=== PATIENT | female | born 1980 | race Caucasian/White ===

== ENCOUNTER 2019-05-17 10:14 | Emergency (ER) | payer BC ==
[2019-05-17 10:36] VITALS: BP 134/94
[2019-05-17] MEDS ORDERED: Ibuprofen TAB* 600 MG PO ONE (11:21)
--- NOTE | 2019-05-17 11:30 | UC ---
Cardiac HPI - HPI Summary HPI Summary: 2-year-old woman comes in with chief complaint of chest pain. On May 11, 2019 and she got up in the middle the night and accidentally walked into the corner of a wooden table with her sternum. She had pain right away. Pain is continued since that time got worse overnight. She has splinting pain. Denies shortness of breath at rest. She is taking shallower breaths due to the pain. No fevers or chills no cough or chest congestion. Pain is worse with palpation. She's taken ibuprofen but doesn't feel like it really helps. Denies any other injury. - History of Current Complaint Chief Complaint: UCTrauma Stated Complaint: RIB INJURY Time Seen by Provider: 05/17/19 11:16 Hx Last Menstrual Period: 2 WEEKS AGO Pain Intensity: 8 - Allergy/Home Medications Allergies/Adverse Reactions: Allergies Allergy/AdvReac Type Severity Reaction Status Date / Time latex Allergy Rash Verified 05/17/19 10:25 Home Medications: Home Medications ALPRAZolam TAB* [Xanax TAB*] 0.5 mg PO BEDTIME PRN 05/17/19 [History Confirmed 05/17/19] traZODone TAB* [Desyrel TAB*] 100 mg PO BEDTIME 05/17/19 [History Confirmed ] PMH/Surg Hx/FS Hx/Imm Hx Previously Healthy: Yes - Surgical History Surgical History: Yes Surgery Procedure, Year, and Place: RT SHOULDER ARTHROSCOPIC. UTERINE POLYPECTOMY - Family History Known Family History: Positive: Non-Contributory - Social History Alcohol Use: None Substance Use Type: None Smoking Status (MU): Former Smoker Review of Systems All Other Systems Reviewed And Are Negative: Yes Constitutional: Positive: Negative Skin: Positive: Other - REPORTS ANTERIOR CHEST BRUISING Eyes: Positive: Negative ENT: Positive: Negative Respiratory: Positive: Other - SEE HPI Cardiovascular: Positive: Chest Pain Gastrointestinal: Positive: Negative Motor: Positive: Negative Neurovascular: Positive: Negative Musculoskeletal: Positive: Negative Neurological: Positive: Negative Psychological: Positive: Negative Is Patient Immunocompromised?: No Physical Exam Triage Information Reviewed: Yes Appearance: Well-Appearing, Well-Nourished, Pain Distress - MILD Vital Signs: Initial Vital Signs Temp 98.6 F 05/17/19 10:29 Pulse 87 05/17/19 10:29 Resp 18 05/17/19 10:29 BP 134/94 05/17/19 10:29 Pulse Ox 100 05/17/19 10:29 Vital Signs Reviewed: Yes Eye Exam: Normal Eyes: Positive: Conjunctiva Clear Neck: Positive: Supple, Nontender Respiratory: Positive: Lungs clear, Normal breath sounds, No respiratory distress, Other: - TAKING SHALLOW BREATHS Cardiovascular: Positive: RRR Abdomen Description: Positive: Nontender, Soft Musculoskeletal Exam: Normal Musculoskeletal: Positive: Strength Intact, ROM Intact Neurological Exam: Normal Neurological: Positive: Alert, Muscle Tone Normal Psychological: Positive: Age Appropriate Behavior - Assessment/Plan Course Of Treatment: Patient Name: ERYN REED Medical Record#: [id number] Ordering Physician: Can Schultz MD Acct.#: [id number] : 1980 Age: 38 Sex: F Location: [facility] Exam Date: 05/17/19 112 ADM Status: REG ER Order Information: STERNUM 2 VWS Accession Number: [id number] CPT: 08045 Indication: Anterior splinting chest pain following injury May 11, 2019. Comparison: May 13, 2012 Technique: Dual energy PA chest and 4 view bilateral rib series. Oblique AP and lateral radiographs of the sternum. REPORT AND IMPRESSION: #. Negative for rib or sternal fracture. #. No focal pulmonary lesion, compelling alveolar consolidation, pleural effusion, pneumothorax. #. The heart, pulmonary vasculature, and mediastinal contours are unremarkable. #. Unremarkable soft tissue contours. <Electronically signed by Danilo Quintanilla MD in OV> 05/17/19 1153 Patient Name: ERYN REED Medical Record#: [id number] Ordering Physician: Can Schultz MD Acct.#: [id number] : 1980 Age: 38 Sex: F Location: [facility] Exam Date: 05/17/19 1122 ADM Status: REG ER Order Information: RIBS BI W/PA CHEST MIN 4 VWS Accession Number: [id number] CPT: 43591 Indication: Anterior splinting chest pain following injury May 11, 2019. Comparison: May 13, 2012 Technique: Dual energy PA chest and 4 view bilateral rib series. Oblique AP and lateral radiographs of the sternum. REPORT AND IMPRESSION: #. Negative for rib or sternal fracture. #. No focal pulmonary lesion, compelling alveolar consolidation, pleural effusion, pneumothorax. #. The heart, pulmonary vasculature, and mediastinal contours are unremarkable. #. Unremarkable soft tissue contours. <Electronically signed by Danilo Quintanilla MD in OV> 05/17/19 1153 I discussed the x-rays with the patient. Overall the plan is ibuprofen and 100 mg 3 times a day as needed and also hydrocodone if needed. Patient's at home with an incentive spirometer. Follow-up with primary care doctor return here or go to the emergency department if worse. - Clinical Impression Provider Diagnosis: Chest wall contusion Discharge - Sign-Out/Discharge Documenting (check all that apply): Patient Departure All imaging exams completed and their final reports reviewed: Yes - Discharge Plan Condition: Stable Disposition: HOME Prescriptions: HYDROcodone/ACETAMIN 5-325 MG* [[place] 5-325 TAB*] 1 tab PO Q4H PRN #20 tab MDD 6 PRN Reason: Pain Ibuprofen TAB* [Motrin TAB* 800 MG] 800 mg PO TID #30 tab Patient Education Materials: Chest Wall Pain (ED) Referrals: Jaqueline Calderón [Primary Care Provider] - [facility] [place] [facility] [Outside] Additional Instructions: FOLLOW UP WITH YOUR DOCTOR IF NOT COMPLETELY IMPROVED. GET RECHECKED SOONER IF YOUR CONDITION WORSENS; PAIN, SHORTNESS OF BREATH, RESPIRATORY INFECTION, YOU FEEL ILL OR ANY QUESTIONS OR CONCERNS. USE THE INCENTIVE SPIROMETER EVERY 4 HOURS OR MORE FREQUENTLY TO HELP AVOID A RESPIRATORY INFECTION. - Billing Disposition and Condition Condition: STABLE Disposition: Home
== END 2019-05-17 12:40 | disposition home or self-care (01) ==
LOC: UCEAST 10:14
DX: S20.219A Contusion of unspecified front wall of thorax, initial encounter (principal); W22.03XA Walked into furniture, initial encounter; Y92.019 Unspecified place in single-family (private) house as the place of occurrence of the external cause; Z91.040 Latex allergy status; Z87.891 Personal history of nicotine dependence
CPT/HCPCS: 71111; 71120; 99212; A9270-GY; G0463

== ENCOUNTER 2019-05-22 06:45 | Emergency (ER) | payer BC ==
[2019-05-22] MEDS ORDERED: oxyCODONE/Acetamin 5/325 MG* TAB PO ONE (07:04)
--- NOTE | 2019-05-22 07:08 | ED ---
Adult Trauma - HPI Summary HPI Summary: 38-year-old female presents with sternal pain for the past week. States a week ago that she got up in the middle of the night and she walked into the corner of wooden table. She states she's had a constant pain since. She states that if she moves a certain way or coughs the pain gets worst. She admits to some shortness of breath due to pain. pain is in sternum and radiates to right chest but has bruise on left chest where does not have pain. She has been taking norco and ibuprofen with no relief. no fever. no abdominal pain. no hemoptysis. has history of allergies so coughs occasionally. She has no history of asthma. she used to be a smoker. - History of Current Complaint Chief Complaint: EDChestWallPain Stated Complaint: CONTUSION OF THE STERM PER PT Time Seen by Provider: 05/22/19 06:56 Hx Last Menstrual Period: 2 WEEKS AGO Pain Intensity: 8 - Allergy/Home Medications Allergies/Adverse Reactions: Allergies Allergy/AdvReac Type Severity Reaction Status Date / Time latex Allergy Rash Verified 05/22/19 06:53 PMH/Surg Hx/FS Hx/Imm Hx Endocrine/Hematology History: Denies: Hx Diabetes, Hx Thyroid Disease Cardiovascular History: Denies: Hx Hypertension, Hx Pacemaker/ICD Respiratory History: Denies: Hx Asthma, Hx Chronic Obstructive Pulmonary Disease (COPD) GI History: Denies: Hx Ulcer Musculoskeletal History: Denies: Hx Scoliosis Sensory History: Denies: Hx Hearing Aid Neurological History: Reports: Other Neuro Impairments/Disorders - HX OF EPILEPSY Denies: Hx Headaches Psychiatric History: Reports: Hx Panic Disorder - Surgical History Surgery Procedure, Year, and Place: RT SHOULDER ARTHROSCOPIC. UTERINE POLYPECTOMY - Immunization History Date of Tetanus Vaccine: up to date per pt. Infectious Disease History: No Infectious Disease History: Denies: Hx Hepatitis, Hx Human Immunodeficiency Virus (HIV), Traveled Outside the [place] in Last 30 Days - Family History Known Family History: Positive: Non-Contributory - Social History Alcohol Use: None Substance Use Type: Reports: None Smoking Status (MU): Former Smoker Review of Systems Negative: Fever Positive: Chest Pain Positive: Shortness Of Breath. Negative: Cough All Other Systems Reviewed And Are Negative: Yes Physical Exam Triage Information Reviewed: Yes Vital Signs On Initial Exam: Initial Vitals Temp Pulse Resp BP Pulse Ox 98.6 F 94 16 135/93 97 05/22/19 06:48 05/22/19 06:48 05/22/19 06:48 05/22/19 06:48 05/22/19 06:48 Vital Signs Reviewed: Yes Appearance: Positive: Well-Appearing Skin: Positive: Warm, Dry Head/Face: Positive: Normal Head/Face Inspection Eyes: Positive: Normal, Conjunctiva Clear ENT: Positive: Pharynx normal Respiratory/Lung Sounds: Positive: Clear to Auscultation, Breath Sounds Present , Other - tenderness sternum Cardiovascular: Positive: Normal, RRR Abdomen Description: Positive: Nontender, Soft Bowel Sounds: Positive: Present Musculoskeletal: Positive: Normal Neurological: Positive: Normal Psychiatric: Positive: Normal Diagnostics - Vital Signs Vital Signs Temp Pulse Resp BP Pulse Ox 05/22/19 06:48 98.6 F 94 16 135/93 97 - Laboratory Lab Statement: Any lab studies that have been ordered have been reviewed, and results considered in the medical decision making process. - CT chest CT Interpretation Completed By: Radiologist Summary of CT Findings: IMPRESSION: 1. No sternal fracture or substernal hematoma. 2. There are approximately 5 solid circumscribed pulmonary nodules in the right middle. and right lower lobes. The largest measure up to 5 mm. Recommend follow-up imaging in one. year. Adult Trauma Course/Dx - Course Course Of Treatment: 38-year-old female presents with contusion to chest days for the past week. States a week ago that she got up in the middle of the night and she walked into the corner of wooden table. She states she's had a constant pain since. She states that if she moves a certain way or coughs the pain gets worst. She admits to some shortness of breath due to pain. pain is in sternum and radiates to right chest but has bruise on left chest where does not have pain. She has been taking norco and ibuprofen with no relief. no fever. no abdominal pain. no hemoptysis. on exam tenderness sternum. lungs CTA. chest CT shows no sternal fracture or hematoma. discussed importance of taking deep breaths. told follow up with primary about nodule and for continued care. patient understand and agrees with plan. - Diagnoses Differential Diagnosis/HQI/PQRI: Positive: Contusion(s), Fracture, Other - lung contusion Provider Diagnoses: Sternal contusion Discharge - Sign-Out/Discharge Documenting (check all that apply): Patient Departure Patient Received Moderate/Deep Sedation with Procedure: No - Discharge Plan Condition: Good Disposition: HOME Prescriptions: Ibuprofen TAB* [Motrin TAB* 600 MG] 600 mg PO Q6H PRN #30 tab PRN Reason: Pain oxyCODONE/Acetamin 5/325 MG* [Percocet 5/325 TAB*] 1 tab PO Q6H PRN #12 tab MDD 4 PRN Reason: Pain Patient Education Materials: Rib Contusion (ED) Referrals: Jaqueline Calderón [Physician Risk And Insurance Manager] - Additional Instructions: apply ice take ibuprofen or tyenlol every 6 hours, use percocet for break through pain every 6 hours take deep breaths throughout the day follow up with primary Return to ED if develop any new or worsening symptoms - Billing Disposition and Condition Condition: GOOD Disposition: Home
[2019-05-22 08:19] VITALS: BP 131/98
== END 2019-05-22 08:18 | disposition home or self-care (01) ==
LOC: ED 06:45
DX: S20.219A Contusion of unspecified front wall of thorax, initial encounter (principal); W22.03XA Walked into furniture, initial encounter; Y92.009 Unspecified place in unspecified non-institutional (private) residence as the place of occurrence of the external cause; Z91.040 Latex allergy status; Z87.891 Personal history of nicotine dependence; R91.8 Other nonspecific abnormal finding of lung field
CPT/HCPCS: 71250; 99282

== ENCOUNTER 2020-02-04 11:36 | Emergency (ER) | payer BC ==
--- NOTE | 2020-02-04 11:39 | UC ---
Lower Extremity/Ankle HPI - HPI Summary HPI Summary: 39 yo female presents with LEFT foot injury. She tells me that on 01/30 she got up in the middle of the night to use the restroom and tripped and her left foot went underneath her. Since that time has had pain, swelling, and bruising to her left foot. Severe pain with weight bearing. She has been trying not to put weight on it and elevate it, which helps. Denies numbness or tingling. - History of Current Complaint Stated Complaint: FOOT INJURY Time Seen by Provider: 02/04/20 11:39 Hx Obtained From: Patient Hx Last Menstrual Period: 2 WEEKS AGO Onset/Duration: Sudden Onset Severity Initially: Moderate Severity Currently: Moderate Pain Intensity: 7 Pain Scale Used: 0-10 Numeric - Allergies/Home Medications Allergies/Adverse Reactions: Allergies Allergy/AdvReac Type Severity Reaction Status Date / Time lamotrigine Allergy Rash Verified 02/04/20 11:58 latex Allergy Rash Verified 02/04/20 11:58 Home Medications: Home Medications Baclofen TAB* [Lioresal TAB*] 10 mg PO TID 10/26/13 [History Confirmed 02/04/20 ] Zonisamide (NF) [Zonegran (NF)] 150 mg PO DAILY 10/26/13 [History Confirmed 11/24] ALPRAZolam TAB* [Xanax TAB*] 0.5 mg PO BEDTIME PRN 05/17/19 [History Confirmed 02/04/20] Ibuprofen TAB* [Motrin TAB* 800 MG] 800 mg PO TID #30 tab 05/17/19 [Rx Confirmed 02/04/20] Ibuprofen TAB* [Motrin TAB* 600 MG] 600 mg PO Q6H PRN #30 tab 05/22/19 [Rx Confirmed 02/04/20] Oxycodone HCl/Acetaminophen [Percocet] 1 tab PO BID PRN #8 tab MDD 2 02/04/20 [ Rx] PMH/Surg Hx/FS Hx/Imm Hx Psychological History: Anxiety - Surgical History Surgical History: Yes Surgery Procedure, Year, and Place: RT SHOULDER ARTHROSCOPIC. UTERINE POLYPECTOMY - Family History Known Family History: Positive: Other - Anxiety - Social History Occupation: Employed Full-time Lives: With Family Alcohol Use: None Substance Use Type: None Smoking Status (MU): Former Smoker Review of Systems All Other Systems Reviewed And Are Negative: No Constitutional: Positive: Negative Skin: Positive: Bruising - foot Respiratory: Positive: Negative Cardiovascular: Positive: Negative Neurovascular: Positive: Negative Musculoskeletal: Positive: Other: - Left foot pain Neurological/Mental Status: Positive: Negative Psychological: Positive: Negative Physical Exam - Summary Physical Exam Summary: GENERAL: NAD. WDWN. No pain distress. SKIN: No rashes, sores, lesions, or open wounds. CHEST: No accessory muscle use. Breathing comfortably and in no distress. CV: Pulses intact PT and DP. Cap refill <2seconds MSK: LEFT FOOT: Moderate ttp about 2nd-4th MT with mild edema and ecchymosis. Moves all toes. Mild 5th base MT pain. LEFT ANKLE: FROM. NTTP. Negative talar tilt. No increased laxity. Negative [place] test. NEURO: Alert. Sensations intact and symmetric B/L LEs PSYCH: Age appropriate behavior. Triage Information Reviewed: Yes Vital Signs: Vital Signs: Temp Pulse Resp BP Pulse Ox 99.4 F 85 16 122/77 100 02/04/20 11:51 02/04/20 11:51 02/04/20 11:51 02/04/20 11:51 02/04/20 11:51 Vital Signs Reviewed: Yes Diagnostics - Radiology Foot XR Radiology Interpretation Completed By: Radiologist Summary of Radiographic Findings: IMPRESSION: Fractures of the proximal diaphysis of the third and fourth metatarsals as well as the distal diaphysis of the fifth metatarsals. CT foot Radiology Interpretation Completed By: Radiologist Summary of Radiographic Findings: IMPRESSION: Comminuted fracture proximal end of the third metatarsal with intra-articular extension. Oblique fracture proximal fourth metatarsal with lateral displacement of the distal fracture fragment approximately 1 shafts width. Fracture of the distal diaphysis of the fifth metacarpal with medial displacement of the distal fracture fragment. Lower Extremity Course/Dx - Course Course Of Treatment: XR as above. Discussed case with Orthopedics Dr. Sheldon and she recommends CT of foot, CAM boot, crutches, non-weight bearing and f/u with Dr. Parsons/Thomas tomorrow or sunday for recheck. Discussed with pt and she is agreeable with the above. iSTOP:Reference #: [id number] Will rx for percocet for severe pain - mostly to use at bedtime. She was placed in a CAM boot and crutch teaching performed. Advised to be non- weight bearing. Ortho will call her this afternoon with an appointment time. - Differential Dx/Diagnosis Provider Diagnosis: Displaced fracture of fifth metatarsal bone, Fracture of fourth metatarsal bone , Fracture of third metatarsal bone Discharge ED - Sign-Out/Discharge Documenting (check all that apply): Patient Departure All imaging exams completed and their final reports reviewed: Yes - Discharge Plan Condition: Stable Disposition: HOME Prescriptions: Oxycodone HCl/Acetaminophen [Percocet] 1 tab PO BID PRN #8 tab MDD 2 PRN Reason: Pain - Severe Patient Education Materials: Foot Fracture in Adults (ED) Forms: *Work Release Referrals: Marcella Patterson MD [Primary Care Provider] - Additional Instructions: 1) Wear the CAM boot as much as possible and use the crutches to be non-weight bearing 2) Please follow up with Orthopedics tomorrow or sunday (they will call you later this afternoon with an appointment time) 3) Rest, ice, and elevate your foot to reduce pain and swelling Opioid-containing medications can cause drowsiness and sedation. You should not drive, operate machinery, or similar activities while taking this medication. Opioids can also cause a positive drug screen and can be habit-forming. You should follow the instructions exactly and not take any extra medication. Opioid medications should be stored in a secure manner to avoid diversion or theft. You should not drink alcohol while taking these medications - Billing Disposition and Condition Condition: STABLE Disposition: Home - Attestation Statements Provider Attestation: I was available for consult. This patient was seen by the MARY. The patient was not presented to, seen by, or examined by me. -Luis M
[2020-02-04 11:56] VITALS: BP 122/77
== END 2020-02-04 13:21 | disposition home or self-care (01) ==
LOC: UCEAST 11:36
DX: S92.352A Displaced fracture of fifth metatarsal bone, left foot, initial encounter for closed fracture (principal); S92.342A Displaced fracture of fourth metatarsal bone, left foot, initial encounter for closed fracture; S92.332A Displaced fracture of third metatarsal bone, left foot, initial encounter for closed fracture; W01.0XXA Fall on same level from slipping, tripping and stumbling without subsequent striking against object, initial encounter; Y93.01 Activity, walking, marching and hiking; Y92.009 Unspecified place in unspecified non-institutional (private) residence as the place of occurrence of the external cause; F41.9 Anxiety disorder, unspecified; Z88.8 Allergy status to other drugs, medicaments and biological substances; Z91.040 Latex allergy status
CPT/HCPCS: 99212; G0463

== ENCOUNTER 2024-08-06 14:58 | Inpatient (IN) ==
[2024-08-06 15:51] LABS: ABS Basophils 0.1 10^3/uL (0.0-0.1); ABS Eosinophils 0.1 10^3/uL (0.0-0.5); ABS Lymphocytes 1.9 10^3/uL (1.0-4.8); ABS Monocytes 0.8 10^3/uL (0.0-0.9); ABS Neutrophils 6.5 10^3/uL (1.5-7.6); ABS Nucleated RBC 0.01 10^3/ul; Hematocrit 41.6 % (35-45); Hemoglobin 13.6 g/dL (11.5-14.3); Lymphocyte % 20.5 %; Mean Corpuscular Hemoglobin 32.2 pg (27-33); Mean Corpuscular Hgb Conc 32.7 g/dL (31-36); Mean Corpuscular Volume 98.3 fL (80-97); Mean Platelet Volume 7.5 fL (7.5-11.2); Nucleated Red Blood Cells % 0.1 %/100WBC (0.0-0.8); Platelet Count 382 10^3/uL (150-450); Red Blood Count 4.23 10^6/uL (3.63-4.92); Red Cell Distribution Width 14.4 % (12-17); White Blood Count 9.5 10^3/uL (3.8-11.8)
[2024-08-06 15:56] LABS: Urine Appearance Clear; Urine Bilirubin Negative (Negative); Urine Blood Negative (Negative); Urine Color Light-Yellow; Urine Glucose Negative (Negative); Urine Ketones Negative (Negative); Urine Nitrite Negative (Negative); Urine Protein Negative (Negative); Urine Specific Gravity 1.003 (1.002-1.030); Urine Urobilinogen Negative (Negative)
[2024-08-06 16:23] LABS: HCG Pregnancy < 0.60 mIU/mL
[2024-08-06 16:31] LABS: TSH Ultra Thyroid Stim Horm 3.05 mcIU/mL (0.34-5.60)
[2024-08-06 17:04] LABS: ALT 25 U/L (7-52); AST 20 U/L (13-39); Acetaminophen < 15 mcg/mL; Albumin 3.9 g/dL (3.2-5.2); Albumin/Globulin Ratio 1.6 (1-3); Alcohol, S 237 mg/dL (<13); Alkaline Phosphatase 91 U/L (35-149); Anion Gap 9 mmol/L (2-16); Blood Urea Nitrogen 8 mg/dL (6-24); CO2 Carbon Dioxide 25 mmol/L (22-32); Calcium 8.2 mg/dL (8.6-10.3); Chloride 96 mmol/L (101-111); Creatinine, Serum 0.58 mg/dL (0.51-0.95); Globulin 2.5 g/dL (2-4); Glucose 79 mg/dL (70-100); Potassium 3.6 mmol/L (3.5-5.0); Salicylate < 2.50 mg/dL (<30); Sodium 130 mmol/L (135-145); Total Bilirubin 0.3 mg/dL (0.2-1.0); Total Protein 6.4 g/dL (6.4-8.9)
[2024-08-06 17:48] LABS: Urine Benzodiazepine Screen Presumptive Positive (None Detect); Urine Cannabinoids Screen Presumptive Positive (None Detect); Urine Opiates Screen None Detected (None Detect)
[2024-08-06] MEDS: Nicotine GUM 4MG FRUIT FLAVOR PO PRN (20:31)
[2024-08-06] MEDS: Nicotine PATCH 14 MG/24 HR PATCH TRANSDERM SCH (20:48)
[2024-08-06] MEDS ORDERED: ZONISAMIDE 50 MG PO ONE (21:51)
[2024-08-06] MEDS: ZONISAMIDE 50 MG PO ONE (22:14)
[2024-08-07] MEDS ORDERED: Al Hydrox/Mg Hydrox/Simet LIQ 30 ML UDC PO PRN (09:01)
[2024-08-07] MEDS: Nicotine Lozenge mini 4 MG LOZNG.MINI MT PRN (11:35)
[2024-08-07 16:25] LABS: ABS Lymphocytes 0.8 10^3/uL (1.0-4.8); ABS Monocytes 0.6 10^3/uL (0.0-0.9); ABS Neutrophils 10.6 10^3/uL (1.5-7.6); ABS Nucleated RBC 0.01 10^3/ul; Eosinophil % 0.1 %; Hematocrit 40.1 % (35-45); Hemoglobin 13.7 g/dL (11.5-14.3); Lymphocyte % 6.8 %; Mean Corpuscular Hemoglobin 33.2 pg (27-33); Mean Corpuscular Hgb Conc 34.1 g/dL (31-36); Mean Corpuscular Volume 97.3 fL (80-97); Mean Platelet Volume 7.3 fL (7.5-11.2); Nucleated Red Blood Cells % 0.1 %/100WBC (0.0-0.8); Platelet Count 371 10^3/uL (150-450); Red Blood Count 4.13 10^6/uL (3.63-4.92); Red Cell Distribution Width 14.3 % (12-17)
[2024-08-07 18:07] LABS: Albumin/Globulin Ratio 1.8 (1-3); Calcium 8.8 mg/dL (8.6-10.3); Creatinine, Serum 0.67 mg/dL (0.51-0.95); Globulin 2.2 g/dL (2-4); Potassium 4.1 mmol/L (3.5-5.0); Total Bilirubin 0.4 mg/dL (0.2-1.0); Total Protein 6.2 g/dL (6.4-8.9); eGFR CKD-EPI 109.1 (>60)
[2024-08-07 22:21] VITALS: BP 110/67
[2024-08-08 08:43] LABS: HDL Cholesterol 77.7 mg/dL
== END 2024-08-08 15:30 | disposition home or self-care (01) | DRG 775 ==
LOC: ED 14:58 → EDHOLD 08-07 09:08 → BSU 08-07 09:52
PROVIDERS: ADMIT Psychiatry & Neurology Psychiatry; ATTEND Psychiatry & Neurology Psychiatry

== ENCOUNTER 2024-09-04 19:06 | Inpatient (IN) ==
[2024-09-04] MEDS: diazePAM INJ CARPUJECT 5 MG/ML SYRINGE IV ONE (20:27)
[2024-09-04] MEDS: Lactated Ringers 1000 ml BAG 1,000 ML IV ONE (20:27)
[2024-09-04 20:39] LABS: ABS Basophils 0.1 10^3/uL (0.0-0.1); ABS Eosinophils 0.1 10^3/uL (0.0-0.5); ABS Lymphocytes 1.8 10^3/uL (1.0-4.8); ABS Monocytes 0.8 10^3/uL (0.0-0.9); ABS Neutrophils 6.5 10^3/uL (1.5-7.6); ABS Nucleated RBC 0.01 10^3/ul; Eosinophil % 0.9 %; Hematocrit 38.2 % (35-45); Hemoglobin 12.8 g/dL (11.5-14.3); Lymphocyte % 19.2 %; Mean Corpuscular Hemoglobin 33.1 pg (27-33); Mean Corpuscular Hgb Conc 33.5 g/dL (31-36); Mean Corpuscular Volume 98.7 fL (80-97); Mean Platelet Volume 7.2 fL (7.5-11.2); Nucleated Red Blood Cells % 0.1 %/100WBC (0.0-0.8); Platelet Count 350 10^3/uL (150-450); Red Blood Count 3.87 10^6/uL (3.63-4.92); Red Cell Distribution Width 14.5 % (12-17); White Blood Count 9.2 10^3/uL (3.8-11.8)
[2024-09-04] MEDS: Zonisamide 100 mg CAP (NF) PO SCH (21:01)
[2024-09-04 21:11] LABS: ALT 18 U/L (7-52); AST 17 U/L (13-39); Albumin/Globulin Ratio 1.7 (1-3); Alcohol, S < 13 mg/dL (<13); Alkaline Phosphatase 128 U/L (35-149); Anion Gap 13 mmol/L (2-16); Blood Urea Nitrogen 8 mg/dL (6-24); CO2 Carbon Dioxide 23 mmol/L (22-32); Calcium 8.8 mg/dL (8.6-10.3); Chloride 107 mmol/L (101-111); Creatinine, Serum 0.64 mg/dL (0.51-0.95); Globulin 2.4 g/dL (2-4); Glucose 81 mg/dL (70-100); Potassium 3.8 mmol/L (3.5-5.0); Sodium 143 mmol/L (135-145); Total Bilirubin 0.4 mg/dL (0.2-1.0); Total Protein 6.4 g/dL (6.4-8.9); eGFR CKD-EPI 110.3 (>60)
[2024-09-04 21:18] LABS: HCG Pregnancy 1.15 mIU/mL
[2024-09-05] MEDS: diazePAM INJ CARPUJECT 5 MG/ML SYRINGE IV SCH ×2 (01:37→05:34)
[2024-09-05] MEDS: Thiamine 100 MG/ML 2 ml VIAL (200 mg) IM ONE (03:13)
[2024-09-05] MEDS: Nicotine Lozenge mini 4 MG LOZNG.MINI MT PRN (03:42)
[2024-09-05] MEDS: PHENobarbital IV 500 MG in NS 0.9% 100 ml BAG 100 ML IV ONE (08:33)
[2024-09-05 08:45] LABS: ABS Basophils 0.1 10^3/uL (0.0-0.1); ABS Eosinophils 0.1 10^3/uL (0.0-0.5); ABS Lymphocytes 1.8 10^3/uL (1.0-4.8); ABS Monocytes 0.7 10^3/uL (0.0-0.9); ABS Neutrophils 6.2 10^3/uL (1.5-7.6); Eosinophil % 1.1 %; Hematocrit 39.1 % (35-45); Mean Corpuscular Hemoglobin 33.1 pg (27-33); Mean Corpuscular Hgb Conc 33.2 g/dL (31-36); Mean Corpuscular Volume 99.7 fL (80-97); Mean Platelet Volume 7.7 fL (7.5-11.2); Platelet Count 327 10^3/uL (150-450); Red Blood Count 3.92 10^6/uL (3.63-4.92); Red Cell Distribution Width 14.8 % (12-17); White Blood Count 8.8 10^3/uL (3.8-11.8)
[2024-09-05 09:24] LABS: Anion Gap 9 mmol/L (2-16); Blood Urea Nitrogen 6 mg/dL (6-24); CO2 Carbon Dioxide 25 mmol/L (22-32); Calcium 8.4 mg/dL (8.6-10.3); Chloride 107 mmol/L (101-111); Creatinine, Serum 0.73 mg/dL (0.51-0.95); Glucose 73 mg/dL (70-100); Magnesium 1.9 mg/dL (1.9-2.7); Sodium 141 mmol/L (135-145); eGFR CKD-EPI 102.6 (>60)
[2024-09-05] MEDS: Multivitamins/Minerals TAB PO SCH (10:33)
[2024-09-05] MEDS: Enoxaparin 40 MG/0.4 ML SYR SUBCUT SCH ×2 (11:15→19:27)
[2024-09-05] MEDS: Potassium Chlor 20 meq TAB.ER PO ONE (19:39)
[2024-09-05] MEDS: [UNRECOGNIZED DRUG - OTHER] MT PRN (20:19)
[2024-09-05] MEDS: CMCS:Zonisamide 50 mg CAP (NF) PO SCH (21:05)
[2024-09-06 04:13] LABS: ABS Basophils 0.1 10^3/uL (0.0-0.1); ABS Eosinophils 0.1 10^3/uL (0.0-0.5); ABS Lymphocytes 1.6 10^3/uL (1.0-4.8); ABS Monocytes 0.5 10^3/uL (0.0-0.9); Eosinophil % 2.3 %; Hematocrit 39.1 % (35-45); Hemoglobin 12.8 g/dL (11.5-14.3); Lymphocyte % 24.9 %; Mean Corpuscular Hemoglobin 32.8 pg (27-33); Mean Corpuscular Hgb Conc 32.6 g/dL (31-36); Mean Corpuscular Volume 100.4 fL (80-97); Mean Platelet Volume 7.1 fL (7.5-11.2); Platelet Count 317 10^3/uL (150-450); Red Cell Distribution Width 14.9 % (12-17); White Blood Count 6.3 10^3/uL (3.8-11.8)
[2024-09-06 04:21] LABS: Calcium 8.6 mg/dL (8.6-10.3); Creatinine, Serum 0.68 mg/dL (0.51-0.95); Potassium 4.3 mmol/L (3.5-5.0); eGFR CKD-EPI 108.7 (>60)
[2024-09-06] MEDS: Saline NASAL SPRAY 0.65% BTL BOTH NARES PRN (17:49)
[2024-09-07] MEDS: Nicotine GUM 4MG FRUIT FLAVOR PO PRN (01:28)
[2024-09-07 06:06] LABS: ABS Basophils 0.1 10^3/uL (0.0-0.1); ABS Eosinophils 0.1 10^3/uL (0.0-0.5); ABS Lymphocytes 1.4 10^3/uL (1.0-4.8); ABS Monocytes 0.5 10^3/uL (0.0-0.9); ABS Neutrophils 4.6 10^3/uL (1.5-7.6); Eosinophil % 1.1 %; Hemoglobin 13.4 g/dL (11.5-14.3); Lymphocyte % 20.9 %; Mean Corpuscular Hemoglobin 33.2 pg (27-33); Mean Corpuscular Hgb Conc 33.6 g/dL (31-36); Mean Corpuscular Volume 98.7 fL (80-97); Mean Platelet Volume 7.8 fL (7.5-11.2); Platelet Count 327 10^3/uL (150-450); Red Blood Count 4.05 10^6/uL (3.63-4.92); Red Cell Distribution Width 14.7 % (12-17); White Blood Count 6.7 10^3/uL (3.8-11.8)
[2024-09-07 06:39] LABS: Calcium 8.5 mg/dL (8.6-10.3); Creatinine, Serum 0.68 mg/dL (0.51-0.95); Magnesium 1.8 mg/dL (1.9-2.7); eGFR CKD-EPI 108.7 (>60)
[2024-09-08 07:55] LABS: ABS Basophils 0.1 10^3/uL (0.0-0.1); ABS Eosinophils 0.1 10^3/uL (0.0-0.5); ABS Lymphocytes 1.2 10^3/uL (1.0-4.8); ABS Monocytes 0.7 10^3/uL (0.0-0.9); ABS Neutrophils 5.7 10^3/uL (1.5-7.6); Hematocrit 39.9 % (35-45); Hemoglobin 13.2 g/dL (11.5-14.3); Lymphocyte % 15.6 %; Mean Corpuscular Hgb Conc 33.1 g/dL (31-36); Mean Corpuscular Volume 99.9 fL (80-97); Mean Platelet Volume 7.8 fL (7.5-11.2); Platelet Count 361 10^3/uL (150-450); Red Cell Distribution Width 14.4 % (12-17); White Blood Count 7.7 10^3/uL (3.8-11.8)
[2024-09-08 08:09] LABS: Calcium 8.8 mg/dL (8.6-10.3); Creatinine, Serum 0.85 mg/dL (0.51-0.95); Magnesium 1.9 mg/dL (1.9-2.7); Potassium 4.7 mmol/L (3.5-5.0); eGFR CKD-EPI 85.5 (>60)
[2024-09-08 13:36] VITALS: BP 113/75
== END 2024-09-08 15:48 | disposition home or self-care (01) | DRG 775 ==
LOC: ED 19:06 → SUATTDRO 09-05 01:27 → EDHOLD 09-05 01:27 → ICU 09-05 08:43 → MEDTELE 09-05 09:20
PROVIDERS: ADMIT Internal Medicine; ATTEND Internal Medicine